=== PATIENT | female | born 1980 | race Two or more races ===

== ENCOUNTER 2025-05-04 14:02 | Emergency (ER) | payer MEDICAID, SELFPAY ==
[2025-05-04 14:04] VITALS: BMI 22.8
[2025-05-04 14:17] VITALS: BP 123/63; PULSE 60; RESP 18; TEMP 37.1; O2SAT 98
--- NOTE | 2025-05-04 14:57 | PD.EDEYE ---
ED Eye Problem RME/HPI General Chief complaint: Eye Problems Stated complaint: EYES RED SINCE MONDAY Time Seen by Provider: 05/04/25 14:16 Arrival date/time: 05/04/25 14:02 This is a 44-year-old female that comes in with complaints of bilateral eye pain. Patient states that she wears contact lenses on both eyes and they recently were irritated. Patient states symptoms started 2 days ago. Patient denies any past medical history. Related Data Previous Rx's ?Medication ?Instructions ?Recorded ibuprofen 600 mg tablet 600 mg PO Q8H PRN fever or pain 09/19/19 #30 tabs ciprofloxacin HCl 0.3 % eye drops See Rx Instructions ophthalmic 05/04/25 (eye) .COMPLEX #10 mL Allergies Allergy/AdvReac Type Severity Reaction Status Date / Time No Known Allergies Allergy Verified 05/04/25 14:04 Review of Systems Review of Systems Systems Reviewed: All systems reviewed, normal except as documented Past Medical History Past Medical History NEUROLOGIC: Negative Neurological Disorders CARDIAC: Negative Cardiac Disorders GASTROINTESTINAL: Negative Gastrointestinal Disorders GENITOURINARY: Negative Genitourinary Disorders or Renal Disease REPRODUCTIVE: Positive Previous Pregnancies MUSCULOSKELETAL: Negative Musculoskeletal Disorders ENDOCRINE: Negative Endocrine Disorders HEMATOLOGIC: Negative Blood Disorders Surgical History OTHER SURGICAL HX: No surgical hx Social History SMOKING STATUS: Never smoker SUBSTANCE USE: does not use ALCOHOL: Never Travel History EBOLA RISK: No ED Exam Narrative Physical exam: VITAL SIGNS: Reviewed. GENERAL APPEARANCE: Alert and interactive, follows commands, no acute distress HEAD AND FACE: Non-traumatic. ENT: bilateral inflamation of conjuctiva, right greater than left, Mucous membrane moist. NECK: Supple, nontender, no nuchal rigidity. CHEST: No tenderness, no crepitus, no paradoxical movement, no retractions. LUNGS: breathing even and unlabored HEART: Regular rate, cap refill less than 2 seconds ABDOMEN: Soft, nondistended NEUROLOGICAL: Gross motor function intact sensory function intact, Appropriate for age. MUSCULOSKELETAL: low back nontender, full range of motion. EXTREMITIES: No redness no swelling no skin breakdown on bilateral foot and leg. Distal neurovascular status intact bilateral foot SKIN: Color pink, dry Course Quality Measures none Orders Category Date Time Status Fluorescein Sodium [Bio-Carlota] Med 05/04/25 14:44 Discontinued 1 mg BOTH EYES X1 ONE TETRACAINE Op Arabella 0.5% [Pontocaine Op Arabella 0.5%] Med 05/04/25 14:44 Discontinued 1 drop BOTH EYES X1 ONE Vital Signs Vital signs: Vital Signs Temperature 98.8 F 05/04/25 14:17 Pulse Rate 60 05/04/25 14:17 Respiratory Rate 18 05/04/25 14:17 Blood Pressure 123/63 05/04/25 14:17 Pulse Oximetry (%) 98 05/04/25 14:17 Oxygen Delivery Method Room Air 05/04/25 14:17 PROCEDURES: Munoz Lamp Exam Bilateral eyes: Flourescein uptake:: Yes Munoz Lamp Findings: Other (bilateral corneal abrasion, right eye has an area 2 mm at a 7 o clock position at the end of iris, left side has a minimal 1-2 mm corneal abrasion on the same position ) Eye MDM Narrative MDM Narrative:: Patient wears contact lenses. I explained to patient to keep scheduled appointment with director special education. I told patient to try not to wear her contacts while she is healing. Patient talked to at length about Antibiotics. Will send patient home with Cipro eye drops. Patient told to come back to the emergency room if symptoms change or worsen. Dragon dictation: Although this document has been carefully reviewed, there may still be some phonetic and other typographical errors. These errors are purely grammatical due to imperfections in the software program and should not be construed in any way to compromise the substance of the patient's medical care during this visit. Patient data External records reviewed:: [facility] previous records Clinical information provided by:: patient Social determinants that could affect healthcare access:: none Patient has the following chronic illnesses:: None How is presenting disease/condition affected by chronic disease/condition?: no chronic disease Evaluation data The following diagnostics were reviewed and interpreted by me:: other (specify) (None) Lab and/or radiology exams considered but not ordered:: None Interpretation Summary: See note Medications / Prescriptions Medications or Prescriptions considered but not ordered:: None Medication administrations:: Medication Administration History Discontinued Medications Fluorescein Sodium (Fluorescein Sod 1 Mg Strp) 1 mg BOTH EYES X1 ONE Stop: 05/04/25 14:45 Last Admin: 05/04/25 15:27 Dose: 1 mg Documented By: REINALDO Comments: USED BY PROVIDER Tetracaine HCl (Tetracaine Pf Op Arabella 0.5% 4 Ml Drpette) 1 drop BOTH EYES X1 ONE Stop: 05/04/25 14:45 Last Admin: 05/04/25 15:27 Dose: 1 drop Documented By: REINALDO Comments: USED BY PROVIDER See MAR Consultations Consultation(s) initiated? (list below): No Diagnosis Eye Problem Differential Diagnosis: corneal abrasion, conjunctivitis and corneal ulcer Most likely diagnosis given after review of the tests above:: Corneal abrasion conjunctivitis Admission Indicated Admission indicated?: not indicated Admission Request Was there a request for admission?: No Disposition Plan Disposition Plan: Discharge Discharge Attestation Discharge Attestation: The patient and all family members were given an opportunity to ask questions and understood the discharge instructions. Discharge instructions specifically effects, indications for sooner follow up or return to the emergency department, and the expected course of current diagnosis. Patient condition: Stable Discharge Plan Plan Patient Disposition: HOME (Self Care) Patient condition on transfer: Stable Prescriptions/Referrals Prescriptions/Med Rec: New ciprofloxacin HCl 0.3 % drops See Rx Instructions .ROUTE .COMPLEX Qty: 10 0RF Rx Instructions: put 1-2 drps in affected eye(s) every 2hr up to 8 times/day x2days; then 4 times/day x5days No Action ibuprofen 600 mg tablet 600 mg PO Q8H PRN (Reason: fever or pain) Qty: 30 0RF Problem List Clinical Impression: Cornea abrasion, Acute bacterial conjunctivitis Patient/Caregiver Discharge Instructions Discharge Activity: activity as tolerated Education Materials: ED Conjunctivitis, Nonspecific, ED Corneal Abrasion Additional Instructions: [place] un claude con marquis medico de cabecera en las proximas 24-48 horas. Regrese a la wili de emergencias si hay evidencia de que los signos o sintomas empeoran. Print Language: Occitan Stand Alone Forms: Toyin Award Info., Patient Portal Info Letter PA/PROGRAM DEVELOPMENT SPECIALIST Supervising Physician PA/PROGRAM DEVELOPMENT SPECIALIST Supervising Physician: louisa
[2025-05-04] MEDS: TETRACAINE PF OP SOL 0.5% 4 ML DRPETTE 1 DROP BOTH EYES (15:27)
[2025-05-04] MEDS: FLUORESCEIN SOD 1 MG STRP BOTH EYES (15:27)
== END 2025-05-04 16:19 | disposition home or self-care (01) ==
LOC: SERX 16:20
PROVIDERS: Emergency Provider Family Medicine; PCP Family Medicine
DX: S05.02XA Injury of conjunctiva and corneal abrasion without foreign body, left eye, initial encounter (principal); S05.01XA Injury of conjunctiva and corneal abrasion without foreign body, right eye, initial encounter; H10.33 Unspecified acute conjunctivitis, bilateral; X58.XXXA Exposure to other specified factors, initial encounter
CPT/HCPCS: 99283